=== PATIENT | male | born 1970 | race American Indian/Alaskan Native ===

== ENCOUNTER 2018-09-07 16:10 | Emergency (ER) | payer BC ==
--- NOTE | 2018-09-07 16:36 | Emergency Department Report ---
Blank Doc - Documentation Documentation: 47 y/o with PMH of HTN c/o of sudden onset of dull headache and tingling ass ociated with dry mouth. Drank some ice water and feels better now.
[2018-09-07 16:37] VITALS: BP 143/88
== END 2018-09-07 19:38 | disposition left against medical advice (07) ==
LOC: ED 16:10
DX: R51 Headache (principal); Z53.21 Procedure and treatment not carried out due to patient leaving prior to being seen by health care provider